=== PATIENT | male | born 1965 | race Caucasian/White ===

== ENCOUNTER → 2017-08-30 | Outpatient (CLI) | payer OTHER ==
[2013-11-09 09:18] VITALS: BMI 26.7
[~2017-08-30] MED LIST: ACET500T68 PO; Docusate Sodium PO; FEXO-67 PO; IBUP-56 PO; LOR5/325 PO
== END ==
LOC: RESP 20:49
PROVIDERS: ATTEND Family Medicine
DX: G47.33 Obstructive sleep apnea (adult) (pediatric) (principal); G47.36 Sleep related hypoventilation in conditions classified elsewhere; E66.3 Overweight

== ENCOUNTER → 2017-10-19 | Outpatient (CLI) | payer OTHER ==
[2013-11-09 09:18] VITALS: BMI 26.7
== END ==
LOC: RESP 20:57
PROVIDERS: ATTEND Family Medicine
DX: G47.33 Obstructive sleep apnea (adult) (pediatric) (principal); G47.36 Sleep related hypoventilation in conditions classified elsewhere